=== PATIENT | female | born 1950 | race American Indian/Alaskan Native ===

== ENCOUNTER 2017-06-12 17:50 | Observation (INO) | payer MEDICARE, OTHER ==
[2017-06-12] MEDS ORDERED: Sodium Chloride 0.9% 1,000 ML IV ONE (18:22)
[2017-06-12 19:14] LABS: CHLORIDE,CL 105 mmol/L (98-110); SODIUM,NA 143 mmol/L (136-146)
[2017-06-12] MEDS ORDERED: cefTRIAXone 1 GM in Premix Bag 1 BAG IV ONE (19:22)
[2017-06-12] MEDS ORDERED: cefTRIAXone 1,000 MG VIAL IVPUSH SCH (19:30)
[2017-06-12] MEDS ORDERED: Sodium Chloride 0.9% 1,000 ML IV SCH ×2 (19:45→20:00)
--- NOTE | 2017-06-12 20:00 | PCM.HP ---
H&P History of Present Illness - History of Present Illness Initial Comments - Free Text/Narative: 67 yo female who presented with lightheadedness and subjective fevers. She was found to have UTI in the ED. She was given IV Rocephin. Vaginal Pain Score (Numeric/FACES): 3 - Related Data Allergies/Adverse Reactions: Allergies Allergy/AdvReac Type Severity Reaction Status Date / Time aspirin Allergy Other Verified 06/12/17 18:08 Home Medications: Home Meds Carbidopa 100 mg PO BEDTIME 06/12/17 [History] Cetirizine [ZyrTEC] 10 mg PO BEDTIME 06/12/17 [History] ClonazePAM [KlonoPIN] 1 mg PO BEDTIME 06/12/17 [History] Insulin Detemir [Levemir] 30 units SQ BEDTIME 06/12/17 [History] Pantoprazole [ProTONIX] 40 mg PO DAILY 06/12/17 [History] Sertraline [Zoloft] 50 mg PO BEDTIME 06/12/17 [History] Simvastatin [Zocor] 5 mg PO BEDTIME 06/12/17 [History] metFORMIN HCl [Metformin HCl] 500 mg PO BID 06/12/17 [History] Cephalexin [Keflex] 500 mg PO Q12H #14 cap 06/13/17 [Rx] Past Medical History HEENT History: Reports: Hard of Hearing Cardiovascular History: Reports: High Cholesterol Respiratory History: Reports: Other (See Below) Other Respiratory History: 50 year smoker Neurological History: Reports: Other (See Below) Other Neuro History: brain aneurysms Psychiatric History: Reports: Anxiety, Depression Endocrine/Metabolic History: Reports: Diabetes, Type II - Infectious Disease History Infectious Disease History: Reports: Chicken Pox, Measles, Mumps Social & Family History - Family History Family Medical History: Noncontributory - Tobacco Use Smoking Status *Q: Current Every Day Smoker Years of Tobacco use: 50 Packs/Tins Daily: 0.5 - Caffeine Use Caffeine Use: Reports: None - Recreational Drug Use Recreational Drug Use: No H&P Review of Systems - Review of Systems: Review Of Systems: ROS reveals no pertinent complaints other than HPI. Exam - Exam Exam: See Below - Vital Signs Vital Signs: Last Vital Signs Temp 36.4 C 06/12/17 19:12 Pulse 84 06/12/17 19:12 Resp 17 06/12/17 19:12 BP 163/90 H 06/12/17 19:12 Pulse Ox 95 06/12/17 19:12 Weight: 85.729 kg - Exam General: Alert, Oriented, 4 Neck: Supple, Trachea Midline, 2 Cardiovascular: Regular Rate, Regular Rhythm GI/Abdominal Exam: Normal Bowel Sounds, Soft, Non-Tender, No Organomegaly, No Distention, No Abnormal Bruit, No Mass, Pelvis Stable Back Exam: No: CVA Tenderness (L), CVA Tenderness (R) Skin: Warm, Dry, Intact - Patient Data Result Diagrams: 06/13/17 05:06 06/13/17 05:06 *Q Meaningful Use (ADM) - VTE *Q VTE Criteria *Q: - Stroke *Q Stroke Criteria *Q: - AMI *Q AMI Criteria *Q: Problem List Initiated/Reviewed/Updated: Yes Orders Last 24hrs: Active Orders 24 hr Category Date Time Status Antiembolic Devices [RC] PER UNIT ROUTINE Care 06/12/17 19:58 Ordered Blood Glucose Check, Bedside [RC] TIDMEALS Care 06/12/17 19:56 Ordered Intake and Output [RC] QSHIFT Care 06/12/17 19:56 Ordered Oxygen Therapy [RC] PRN Care 06/12/17 19:56 Ordered Up ad Sarah [RC] ASDIRECTED Care 06/12/17 19:56 Ordered VTE/DVT Education [RC] PER UNIT ROUTINE Care 06/12/17 19:56 Ordered Vital Signs [RC] Q4H Care 06/12/17 19:56 Ordered [employer] Diet [DIET] Diet 06/12/17 Breakfast Ordered BASIC METABOLIC PANEL,BMP [CHEM] AM Lab 06/13/17 05:11 Ordered BASIC METABOLIC PANEL,BMP [CHEM] AM Lab 06/14/17 05:11 Ordered BASIC METABOLIC PANEL,BMP [CHEM] AM Lab 06/15/17 05:11 Ordered CBC W/O DIFF,HEMOGRAM [HEME] AM Lab 06/13/17 05:11 Ordered CBC W/O DIFF,HEMOGRAM [HEME] AM Lab 06/14/17 05:11 Ordered CBC W/O DIFF,HEMOGRAM [HEME] AM Lab 06/15/17 05:11 Ordered Enoxaparin [Lovenox] Med 06/13/17 09:00 Ordered 40 mg SUBCUT DAILY Sodium Chloride 0.9% @ 125 MLS/HR (1000ml) Med 06/12/17 20:00 Ordered Sodium Chloride 0.9% [Normal Saline] 1,000 ml IV ASDIRECTED cefTRIAXone [Rocephin] Med 06/13/17 20:00 Ordered 1,000 mg IVPUSH Q24H Sequential Compression Device [OM.PC] Per Unit Routine Oth 06/12/17 19:56 Ordered Resuscitation Status Routine Resus Stat 06/12/17 19:56 Ordered Medication Orders Ceftriaxone Sodium (Rocephin) 1,000 mg IVPUSH Q24H [facility] Enoxaparin Sodium (Lovenox) 40 mg SUBCUT DAILY [facility] Sodium Chloride (Normal Saline) 1,000 mls @ 125 mls/hr IV ASDIRECTED [facility] Last Admin: 06/12/17 19:36 Dose: 125 mls/hr Sodium Chloride (Normal Saline) 1,000 mls @ 125 mls/hr IV ASDIRECTED [facility] Assessment/Plan Comment:: 67 yo female admitted for UTI. Treated with IV Rocephin. Urine culture pending. Patient this morning feeling better and requesting discharge. She was discharged on Keflex 500mg BID.
[2017-06-12] MEDS ORDERED: CARBIDOPA 100 MG PO SCH (21:00)
[2017-06-12] MEDS ORDERED: Simvastatin 10 MG Tab PO SCH (21:00)
[2017-06-12] MEDS ORDERED: Cetirizine 10 MG Tab PO SCH (21:38)
[2017-06-12] MEDS ORDERED: ClonazePAM 1 MG Tab PO SCH (21:45)
[2017-06-12] MEDS ORDERED: Sertraline 50 MG Tab PO SCH (21:45)
[2017-06-12] MEDS: Nicotine 14 MG/24 Hr Patch TRDERM SCH (21:53)
[2017-06-12] MEDS ORDERED: Insulin Detemir 100 Units/ML 3 ML Pen SUBCUT SCH ×2 (22:00→22:15)
--- NOTE | 2017-06-12 22:02 | EDM.PDOC ---
ED HPI GENERAL MEDICAL PROBLEM - General Chief Complaint: Syncope Stated Complaint: POSSIBLE UTI Time Seen by Provider: 06/12/17 18:35 Source of Information: Reports: Patient History Limitations: Reports: No Limitations - History of Present Illness INITIAL COMMENTS - FREE TEXT/NARRATIVE: HISTORY AND PHYSICAL: History of present illness: [Patient comes to the emergency room with EMS. States that she has had several episodes of urinary incontinence today and one episode of bowel incontinence. This is not normal for patient. She has had a large amount of blood in her urine and increased thirst today. Has had urinary urgency and frequency throughout today. States that she fell while last evening. No fever or chills. No abdominal pain or back pain. Denies chest pain shortness of breath and difficulty breathing. States that she fell off a ladder and she was hanging a picture 4 days ago hitting her right inner upper thigh on the arm of her chair. She did not fall or hit her head. She did not pass out or have any loss of consciousness. No other injuries sustained at that time. Smokes one half pack of cigarettes per day. History of type 2 insulin-dependent diabetes, depression, hypercholesterolemia.] Review of systems: As per history of present illness and below otherwise all systems reviewed and negative. Past medical history: As per history of present illness and as reviewed below otherwise noncontributory. Surgical history: As per history of present illness and as reviewed below otherwise noncontributory. Social history: No reported history of drug or alcohol abuse. Family history: As per history of present illness and as reviewed below otherwise noncontributory. Physical exam: Gen.: Well-developed well-nourished female in no acute distress. Resting comfortably on exam table. HEENT: Atraumatic, normocephalic. Oral mucous membranes moist. neck supple, no lymphadneopathy. Lungs: Clear to auscultation, breath sounds equal bilaterally. Heart: S1S2, regular rate and rhythm. Abdomen: Bowel sounds are normoactive throughout. Soft, nondistended, nontender. Negative for masses guarding or rebound. Negative for costovertebral tenderness. Pelvis: Stable nontender. Genitourinary: Deferred. Rectal: Deferred. Extremities: Atraumatic. No cyanosis or edema to feet or lower legs. Neurovascular unremarkable. Neuro: Awake, alert, oriented. Motor and sensory unremarkable throughout. Exam nonfocal. Diagnostics: [CBC, CMP, urinalysis, urine culture, lactic acid] Therapeutics: [Rocephin 1 g IV, 1 L normal saline IV] Impression: [Cystitis] Plan: [Patient's white blood cell count is 17.98 and urinalysis shows large amount of blood in her urine and positive nitrites. Lactate within normal limits. Discussed patient's condition and labs with Dr. Quinton Blount who agrees to accept patient in observation for IV antibiotics. Patient is in agreement with today's plan.] Definitive disposition and diagnosis as appropriate pending reevaluation and review of above. Vaginal Pain Score (Numeric/FACES): 3 - Related Data Allergies Allergy/AdvReac Type Severity Reaction Status Date / Time aspirin Allergy Other Verified 06/12/17 18:08 Home Meds: Home Meds Carbidopa 100 mg PO BEDTIME 06/12/17 [History] Cetirizine [ZyrTEC] 10 mg PO BEDTIME 06/12/17 [History] ClonazePAM [KlonoPIN] 1 mg PO BEDTIME 06/12/17 [History] Insulin Detemir [Levemir] 30 units SQ BEDTIME 06/12/17 [History] Pantoprazole [ProTONIX] 40 mg PO DAILY 06/12/17 [History] Sertraline [Zoloft] 50 mg PO BEDTIME 06/12/17 [History] Simvastatin [Zocor] 5 mg PO BEDTIME 06/12/17 [History] metFORMIN HCl [Metformin HCl] 500 mg PO BID 06/12/17 [History] Past Medical History HEENT History: Reports: Hard of Hearing Cardiovascular History: Reports: High Cholesterol Respiratory History: Reports: Other (See Below) Other Respiratory History: 50 year smoker [employer] History: Reports: Other (See Below) Other OB/BYN History: hysterectomy Neurological History: Reports: Other (See Below) Other Neuro History: brain aneurysms Psychiatric History: Reports: Anxiety, Depression Endocrine/Metabolic History: Reports: Diabetes, Type II - Infectious Disease History Infectious Disease History: Reports: Chicken Pox, Measles, Mumps - Past Surgical History Other HEENT Surgeries/Procedures: uses hearing aid at left Social & Family History - Family History Family Medical History: Noncontributory - Tobacco Use Smoking Status *Q: Current Every Day Smoker Years of Tobacco use: 50 Packs/Tins Daily: 0.5 Second Hand Smoke Exposure: No - Caffeine Use Caffeine Use: Reports: None - Recreational Drug Use Recreational Drug Use: No ED ROS GENERAL - Review of Systems Review Of Systems: ROS reveals no pertinent complaints other than HPI. ED EXAM, RENAL/ - Physical Exam Exam: See Below Course - Vital Signs Last Recorded V/S: Last Vital Signs Temp 97.5 F 06/12/17 20:40 Pulse 90 06/12/17 20:40 Resp 16 06/12/17 20:40 BP 137/64 06/12/17 20:40 Pulse Ox 95 06/12/17 20:50 - Orders/Labs/Meds Orders: Active Orders 24 hr Category Date Time Status Patient Status [ADT] Stat ADT 06/12/17 19:38 Active EKG 12 Lead [EKG Documentation Completion] [RC] STAT Care 06/12/17 18:58 Active CULTURE BLOOD [BC] Stat Lab 06/12/17 18:30 Received CULTURE BLOOD [BC] Stat Lab 06/12/17 18:44 Received CULTURE URINE [RM] Stat Lab 06/12/17 18:22 Ordered Blood Culture x2 Reflex Set [OM.PC] Stat Oth 06/12/17 18:22 Ordered Medication Orders Cetirizine HCl (Zyrtec) 10 mg PO BEDTIME [facility]ON Last Admin: 06/12/17 21:55 Dose: 10 mg Clonazepam (Klonopin) 1 mg PO BEDTIME [facility] Last Admin: 06/12/17 21:56 Dose: 1 mg Enoxaparin Sodium (Lovenox) 40 mg SUBCUT DAILY [facility] Sodium Chloride (Normal Saline) 1,000 mls @ 125 mls/hr IV ASDIRECTED [facility] Ceftriaxone Sodium/Dextrose 1 (gm/ Premix) 50 mls @ 100 mls/hr IV Q24H [facility] Insulin Detemir (Levemir) 30 unit SUBCUT BEDTIME [facility] Insulin Detemir (Levemir) 30 unit SUBCUT BEDTIME [facility] Nicotine (Habitrol) 14 mg TRDERM DAILY [facility] Last Admin: 06/12/17 21:53 Dose: 14 mg Non-Formulary Medication (Carbidopa) 100 mg PO BEDTIME [facility] Pantoprazole Sodium (Protonix) 40 mg PO DAILY [facility] Sertraline HCl (Zoloft) 50 mg PO BEDTIME [facility] Last Admin: 06/12/17 21:58 Dose: 50 mg Simvastatin (Zocor) 5 mg PO BEDTIME [facility] Last Admin: 06/12/17 21:55 Dose: 5 mg Labs: Laboratory Tests 06/12/17 06/12/17 06/12/17 Range/Units 18:02 18:44 18:44 WBC 17.97 H (4.0-11.0) K/uL RBC 5.15 (4.30-5.90) M/uL Hgb 15.0 (12.0-16.0) g/dL Hct 44.7 (36.0-46.0) % MCV 86.8 (80.0-98.0) fL MCH 29.1 (27.0-32.0) pg MCHC 33.6 (31.0-37.0) g/dL RDW Std Deviation 43.9 (28.0-62.0) fl RDW Coeff of Marco 14 (11.0-15.0) % Plt Count 221 (150-400) K/uL MPV 11.20 (7.40-12.00) fL Neut % (Auto) 71.7 (48.0-80.0) % Lymph % (Auto) 20.5 (16.0-40.0) % [place] % (Auto) 6.5 (0.0-15.0) % Eos % (Auto) 1.2 (0.0-7.0) % Baso % (Auto) 0.1 (0.0-1.5) % Neut # (Auto) 12.9 H (1.4-5.7) K/uL Lymph # (Auto) 3.7 H (0.6-2.4) K/uL [place] # (Auto) 1.2 H (0.0-0.8) K/uL Eos # (Auto) 0.2 (0.0-0.7) K/uL Baso # (Auto) 0.0 (0.0-0.1) K/uL Nucleated RBC % 0.0 /100WBC Nucleated RBCs # 0 K/uL Lactate (0.20-2.00) mmol/L Sodium 143 (136-146) mmol/L Potassium 3.6 (3.5-5.1) mmol/L Chloride 105 (98-110) mmol/L Carbon Dioxide 27 (21-31) mmol/L BUN 13 (6.0-23.0) mg/dL Creatinine 0.8 (0.6-1.5) mg/dL Est Cr Clr Drug Dosing TNP Estimated GFR (MDRD) > 60.0 ml/min Glucose 157 H (60-110) mg/dL Calcium 9.1 (8.8-10.8) mg/dL Total Bilirubin 0.4 (0.1-1.5) mg/dL AST 20 (5-40) IU/L ALT 16 (8-54) IU/L Alkaline Phosphatase 76 (40-150) Total Protein 6.5 (6.0-8.0) g/dL Albumin 3.7 (3.4-4.8) g/dL Globulin 2.8 (2.0-3.5) g/dL Albumin/Globulin Ratio 1.3 (1.3-2.8) Urine Color BROWN Urine Appearance CLOUDY Urine pH 5.5 (5.0-8.0) Ur Specific [place] 1.025 (1.001-1.035) Urine Protein 100 (NEGATIVE) mg/dL Urine Glucose (UA) >=1000 (NEGATIVE) mg/dL Urine Ketones TRACE H (NEGATIVE) mg/dL Urine Occult Blood LARGE H (NEGATIVE) Urine Nitrite POSITIVE H (NEGATIVE) Urine Bilirubin NEGATIVE (NEGATIVE) Urine Urobilinogen 1.0 (<2.0) EU/dL Ur Leukocyte Esterase SMALL (NEGATIVE) Urine RBC TOO NUMBEROUS TO CT H (0-2/HPF) Urine WBC 50-60 (0-5/HPF) Ur Epithelial Cells RARE (NONE-FEW) Urine Bacteria 1+ H (NEGATIVE) 06/12/17 Range/Units 18:44 WBC (4.0-11.0) K/uL RBC (4.30-5.90) M/uL Hgb (12.0-16.0) g/dL Hct (36.0-46.0) % MCV (80.0-98.0) fL MCH (27.0-32.0) pg MCHC (31.0-37.0) g/dL RDW Std Deviation (28.0-62.0) fl RDW Coeff of Marco (11.0-15.0) % Plt Count (150-400) K/uL MPV (7.40-12.00) fL Neut % (Auto) (48.0-80.0) % Lymph % (Auto) (16.0-40.0) % [place] % (Auto) (0.0-15.0) % Eos % (Auto) (0.0-7.0) % Baso % (Auto) (0.0-1.5) % Neut # (Auto) (1.4-5.7) K/uL Lymph # (Auto) (0.6-2.4) K/uL [place] # (Auto) (0.0-0.8) K/uL Eos # (Auto) (0.0-0.7) K/uL Baso # (Auto) (0.0-0.1) K/uL Nucleated RBC % /100WBC Nucleated RBCs # K/uL Lactate 1.3 (0.20-2.00) mmol/L Sodium (136-146) mmol/L Potassium (3.5-5.1) mmol/L Chloride (98-110) mmol/L Carbon Dioxide (21-31) mmol/L BUN (6.0-23.0) mg/dL Creatinine (0.6-1.5) mg/dL Est Cr Clr Drug Dosing Estimated GFR (MDRD) ml/min Glucose (60-110) mg/dL Calcium (8.8-10.8) mg/dL Total Bilirubin (0.1-1.5) mg/dL AST (5-40) IU/L ALT (8-54) IU/L Alkaline Phosphatase (40-150) Total Protein (6.0-8.0) g/dL Albumin (3.4-4.8) g/dL Globulin (2.0-3.5) g/dL Albumin/Globulin Ratio (1.3-2.8) Urine Color Urine Appearance Urine pH (5.0-8.0) Ur Specific [place] (1.001-1.035) Urine Protein (NEGATIVE) mg/dL Urine Glucose (UA) (NEGATIVE) mg/dL Urine Ketones (NEGATIVE) mg/dL Urine Occult Blood (NEGATIVE) Urine Nitrite (NEGATIVE) Urine Bilirubin (NEGATIVE) Urine Urobilinogen (<2.0) EU/dL Ur Leukocyte Esterase (NEGATIVE) Urine RBC (0-2/HPF) Urine WBC (0-5/HPF) Ur Epithelial Cells (NONE-FEW) Urine Bacteria (NEGATIVE) Meds: Medications Generic Name Dose Route Start Last Admin Trade Name Gladis PRN Reason Stop Dose Admin Cetirizine HCl 10 mg 06/12/17 21:38 06/12/17 21:55 Zyrtec PO 10 mg BEDTIME BR[facility]ON Administration Clonazepam 1 mg 06/12/17 21:45 06/12/17 21:56 Klonopin PO 1 mg BEDTIME BRANDON Administration Enoxaparin Sodium 40 mg 06/13/17 09:00 Lovenox SUBCUT DAILY BR[facility] Sodium Chloride 1,000 mls @ 125 mls/hr 06/12/17 20:00 Normal Saline IV ASDIRECTED [facility] Ceftriaxone Sodium/Dextrose 1 50 mls @ 100 mls/hr 06/13/17 20:00 gm/ Premix IV Q24H BR[facility] Insulin Detemir 30 unit 06/12/17 22:00 Levemir SUBCUT BEDTIME BR[facility] Insulin Detemir 30 unit 06/12/17 22:15 Levemir SUBCUT BEDTIME [facility] Nicotine 14 mg 06/12/17 21:45 06/12/17 21:53 Habitrol TRDERM 14 mg DAILY [facility] Administration Non-Formulary Medication 100 mg 06/12/17 21:00 Carbidopa PO BEDTIME BRAND[facility] Pantoprazole Sodium 40 mg 06/13/17 09:00 Protonix PO DAILY [facility] Sertraline HCl 50 mg 06/12/17 21:45 06/12/17 21:58 Zoloft PO 50 mg BEDTIME [facility]ON Administration Simvastatin 5 mg 06/12/17 21:00 06/12/17 21:55 Zocor PO 5 mg BEDTIME BR[facility]ON Administration Discontinued Medications Generic Name Dose Route Start Last Admin Trade Name Gladis PRN Reason Stop Dose Admin Ceftriaxone Sodium 1,000 mg 06/12/17 19:30 Rocephin IVPUSH Q24H BR[facility] Ceftriaxone Sodium 1,000 mg 06/13/17 20:00 Rocephin IVPUSH Q24H [facility] Sodium Chloride 1,000 mls @ 999 mls/hr 06/12/17 18:22 06/12/17 18:27 Normal Saline IV 06/12/17 19:22 999 mls/hr STAT ONE Administration Ceftriaxone Sodium/Dextrose 1 50 mls @ 100 mls/hr 06/12/17 19:22 06/12/17 19: 28 gm/ Premix IV 06/12/17 19:51 100 mls/hr ONETIME ONE Administration Sodium Chloride 1,000 mls @ 125 mls/hr 06/12/17 19:45 06/12/17 19:36 Normal Saline IV 125 mls/hr ASDIRECTED [facility]ON Administration Departure - Departure Time of Disposition: 19:35 Disposition: Admitted As Inpatient 64 Condition: Good Clinical Impression: Cystitis - Discharge Information - My Orders Last 24 Hours: My Active Orders 06/12/17 18:22 CULTURE URINE [RM] Stat Blood Culture x2 Reflex Set [OM.PC] Stat 06/12/17 18:30 CULTURE BLOOD [BC] Stat 06/12/17 18:44 CULTURE BLOOD [BC] Stat 06/12/17 18:58 EKG 12 Lead [EKG Documentation Completion] [RC] STAT 06/12/17 19:38 Patient Status [ADT] Stat - Assessment/Plan Last 24 Hours: My Active Orders 06/12/17 18:22 CULTURE URINE [RM] Stat Blood Culture x2 Reflex Set [OM.PC] Stat 06/12/17 18:30 CULTURE BLOOD [BC] Stat 06/12/17 18:44 CULTURE BLOOD [BC] Stat 06/12/17 18:58 EKG 12 Lead [EKG Documentation Completion] [RC] STAT 06/12/17 19:38 Patient Status [ADT] Stat
[2017-06-12] MEDS: Insulin Aspart 100 Units/ML 3 ML Pen SUBCUT SCH (22:39)
[2017-06-13 05:43] LABS: CHLORIDE,CL 109 mmol/L (98-110); SODIUM,NA 145 mmol/L (136-146)
[2017-06-13] MEDS: Insulin Aspart 100 Units/ML 3 ML Pen SUBCUT SCH (07:22)
[2017-06-13] MEDS: Nicotine 14 MG/24 Hr Patch TRDERM SCH (08:10)
[2017-06-13 08:47] VITALS: BP 159/66
[2017-06-13] MEDS ORDERED: Pantoprazole 40 MG Tab.CR PO SCH (09:00)
[2017-06-13] MEDS ORDERED: Enoxaparin 40 MG/0.4 ML Syringe SUBCUT SCH (09:00)
[2017-06-13] MEDS ORDERED: cefTRIAXone 1,000 MG VIAL IVPUSH SCH (20:00)
[2017-06-13] MEDS ORDERED: cefTRIAXone 1 GM in Premix Bag 1 BAG IV SCH (20:00)
== END 2017-06-13 11:25 | disposition home or self-care (01) ==
LOC: MW.ED 17:50 → MW.MS 19:47
PROVIDERS: ADMIT Internal Medicine; ATTEND Internal Medicine
DX: N39.0 Urinary tract infection, site not specified (principal); E78.00 Pure hypercholesterolemia, unspecified; E11.9 Type 2 diabetes mellitus without complications; F41.9 Anxiety disorder, unspecified; F32.9 Major depressive disorder, single episode, unspecified; F17.210 Nicotine dependence, cigarettes, uncomplicated; Z88.6 Allergy status to analgesic agent; Z79.4 Long term (current) use of insulin; Z79.84 Long term (current) use of oral hypoglycemic drugs; Z79.899 Other long term (current) drug therapy
CPT/HCPCS: 36415; 80048; 80053; 81001; 82962; 83605; 85025; 85027; 87040; 93005; 96361; 96365; 96366; 96372; 99285; A9270; G0378; J0696; J1650; J1815; J7040